=== PATIENT | male | born 1975 | race Caucasian/White ===

== ENCOUNTER 2024-02-21 00:52 | Outpatient (CLI) | payer BC | END 2024-02-21 22:59 | disposition critical access hospital (66) | LOC: EMS 00:52 | DX: R11.2 Nausea with vomiting, unspecified (principal); R42 Dizziness and giddiness; I10 Essential (primary) hypertension | CPT/HCPCS: A0425; A0429 ==

== ENCOUNTER 2024-02-21 01:35 | Emergency (ER) | payer BC ==
--- NOTE | 2024-02-21 01:50 | ED Physician Documentation ---
History of Present Illness - Stated complaint Stated Complaint: VOMITING - Chief complaint Chief Complaint: General - History obtained from History obtained from: Patient, EMS - Additonal information Additional information: 48-year-old man with history of diabetes presents to the emergency department after taking 18 units of Lantus for the first time at 11 PM tonight and then experiencing symptoms 20 minutes later including lightheadedness while on the toilet, sensation of the room spinning, vomiting and nausea. these symptoms persisted, prompting him to call ems. felt normal earlier in the day. Patient received 4mg zofran en route with improvement in nausea. Review of Systems Constitutional: denies: Fever, Chills Cardiac: denies: Chest pain / pressure Respiratory: denies: Dyspnea GI: reports: Abdominal Pain, Nausea, Vomiting. denies: Diarrhea PD PAST MEDICAL HISTORY - Past Medical History Past Medical History: Yes Endocrine/Autoimmune: Type 2 diabetes - Past Surgical History Past Surgical History: No - Present Medications Home Medications: Ambulatory Orders Medication Instructions Recorded Confirmed Ondansetron Odt [Zofran Odt] 4 mg TL Q6H PRN #10 tablet 02/21/24 Potassium Chloride [Micro-K] 10 meq PO QDAC #30 tab 02/21/24 - Allergies Allergies/Adverse Reactions: Allergies Allergy/AdvReac Type Severity Reaction Status Date / Time No Known Drug Allergies Allergy Verified 02/21/24 01:43 - Social History Does the pt smoke?: No Smoking Status: Never smoker PD ED PE NORMAL - Vitals Vital signs reviewed: Yes - General General: Alert and oriented X 3, No acute distress, Well developed/nourished - HEENT HEENT: Atraumatic, PERRL, EOMI, Moist mucous membranes, Pharynx benign - Neck Neck: Supple, no meningeal sign - Cardiac Cardiac: RRR - Respiratory Respiratory: No respiratory distress, Clear bilaterally - Abdomen Abdomen: Non tender, Non distended - Derm Derm: Normal color, Warm and dry - Neuro Neuro: Alert and oriented X 3, 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4 H VBG HCO3 23.9 VBG Total CO2 25.0 VBG O2 Saturation 94.9 H VBG Base Excess 0.2 Sodium 137 Potassium 3.0 L Chloride 103 Carbon Dioxide 26 Anion Gap 8.0 BUN 20 Creatinine 1.1 Estimated GFR (MDRD) 72 L Glucose 233 H Calcium 9.1 Total Bilirubin 0.5 AST 24 ALT 47 Alkaline Phosphatase 82 Total Protein 6.2 L Albumin 4.1 Globulin 2.1 Albumin/Globulin Ratio 2.0 Lipase 30 Urine Color Urine Clarity Urine pH Ur Specific [place] Urine Protein Urine Glucose (UA) Urine Ketones Urine Occult Blood Urine Nitrite Urine Bilirubin Urine Urobilinogen Ur Leukocyte Esterase Ur Microscopic Review Urine Culture Comments Serum Ketones NEGATIVE 02/21/24 02:11 WBC RBC Hgb Hct MCV MCH MCHC RDW Plt Count MPV Neut # (Auto) Lymph # (Auto) Garza # (Auto) Eos # (Auto) Baso # (Auto) Absolute Nucleated RBC Nucleated RBC % VBG pH VBG pCO2 VBG pO2 VBG HCO3 VBG Total CO2 VBG O2 Saturation VBG Base Excess Sodium Potassium Chloride Carbon Dioxide Anion Gap BUN Creatinine Estimated GFR (MDRD) Glucose Calcium Total Bilirubin AST ALT Alkaline Phosphatase Total Protein Albumin Globulin Albumin/Globulin Ratio Lipase Urine Color YELLOW Urine Clarity CLEAR Urine pH 6.0 Ur Specific [place] 1.025 Urine Protein NEGATIVE Urine Glucose (UA) >=1000 H Urine Ketones 15 H Urine Occult Blood NEGATIVE Urine Nitrite NEGATIVE Urine Bilirubin NEGATIVE Urine Urobilinogen 0.2 (NORMAL) Ur Leukocyte Esterase NEGATIVE Ur Microscopic Review NOT INDICATED Urine Culture Comments NOT INDICATED Serum Ketones PD Medical Decision Making - ED course ED course: 48yM With history of diabetes presents with multiple medical symptoms after first-time use of Lantus this evening. Nausea and vomiting seems to have resolved after Zofran given by EMS and his lightness has has improved as well. Plan to obtain screening lab work and keep him on the case monitor. Doubt ACS given no chest pain, shortness of breath and resolution of symptoms. Workup was unremarkable aside from hypokalemia and high blood sugar. ordered potassium repletion and spoke to patient about need to f/u with pcp. return precautions given. Departure - Departure Disposition: Home, Self Care Clinical Impression: Hyperglycemia Condition: Stable Instructions: ED Nausea Vomiting Prescriptions: Potassium Chloride [Micro-K] 10 meq PO QDAC #30 tab Ondansetron Odt [Zofran Odt] 4 mg TL Q6H PRN #10 tablet PRN Reason: Nausea / Vomiting Comments: You were seen in the emergency department for medical evaluation. Prescriptions sent to [facility]. Please follow-up with your primary care provider and return to the emergency department if you have any new or worsening symptoms or other concerns. Forms: PCP List
[2024-02-21] MEDS: SODIUM CHLORIDE 0.9% 1,000 ML IV STA ×2 (02:00→03:40)
[2024-02-21 02:01] LABS: VBG PH 7.44 (7.31-7.41)
[2024-02-21 02:02] LABS: VBG BASE EXCESS 0.2 mmol/L (-2 - +2); VBG HCO3 23.9 mmol/L (23-28); VBG OXYGEN SATURATION 94.9 % (60-80); VBG PO2 73.4 mmHg (25-47)
[2024-02-21 02:04] LABS: BASOPHILS % (AUTO) 0.2 %; EOSINOPHILS % (AUTO) 0.4 %; HGB - HEMOGLOBIN 14.2 g/dL (14.0-18.0); LYMPHOCYTES # (AUTO) 1.4 10^3/uL (1.5-3.5); LYMPHOCYTES % (AUTO) 13.3 %; MEAN CORPUSCULAR HGB CONC 35.5 g/dL (32.0-36.0); MEAN CORPUSCULAR VOLUME 87.3 fL (80.0-94.0); MEAN PLATELET VOLUME 10.9 fL (7.4-11.4); MONOCYTES # (AUTO) 0.7 10^3/uL (0.0-1.0); MONOCYTES % (AUTO) 7.2 %; NEUTROPHILS % (AUTO) 78.6 %; PLT - PLATELET COUNT 148 10^3/uL (130-450); RED BLOOD COUNT 4.58 10^6/uL (4.70-6.10); WHITE BLOOD COUNT 10.1 x10^3/uL (4.8-10.8)
[2024-02-21 02:09] LABS: KETONES, SERUM (ACETEST) NEGATIVE (NEGATIVE)
[2024-02-21 02:19] LABS: BILIRUBIN,URINE NEGATIVE (NEGATIVE); CLARITY,URINE CLEAR (CLEAR); GLUCOSE, URINE (UA) >=1000 mg/dL (NEGATIVE); KETONES,URINE (UA) 15 mg/dL (NEGATIVE); LEUKOCYTE ESTERASE, URINE NEGATIVE (NEGATIVE); NITRITE,URINE NEGATIVE (NEGATIVE); OCCULT BLOOD,URINE NEGATIVE (NEGATIVE); PROTEIN,URINE NEGATIVE (NEGATIVE); UROBILINOGEN,URINE 0.2 (NORMAL) E.U./dL (NORMAL)
[2024-02-21 02:19] LABS: ALBUMIN 4.1 g/dL (3.2-5.5); ALKALINE PHOSPHATASE 82 IU/L (42-121); ALT ALANINE AMINOTRANSFERASE 47 IU/L (10-60); AST ASPARTATE AMINOTRANSFERASE 24 IU/L (10-42); BILIRUBIN,TOTAL 0.5 mg/dL (0.2-1.0); BUN - BLOOD UREA NITROGEN 20 mg/dL (6-20); CALCIUM 9.1 mg/dL (8.5-10.3); CARBON DIOXIDE - CO2 26 mmol/L (21-32); CHLORIDE 103 mmol/L (101-111); CREATININE 1.1 mg/dL (0.6-1.3); GFR - MDRD 72 (>89); GLUCOSE 233 mg/dL (74-104); LIPASE 30 U/L (11-82); SODIUM 137 mmol/L (135-145); TOTAL PROTEIN 6.2 g/dL (6.4-8.9)
[2024-02-21] MEDS: POTASSIUM CHLORIDE 20 MEQ/15 ML UDC PO STA (03:40)
[2024-02-21] MEDS: POTASSIUM CHLOR 10 MEQ/100 ML 10 MEQ/100 ML BAG IV STA (03:41)
[2024-02-21 04:19] VITALS: O2SAT 96
[2024-02-21 04:57] VITALS: BP 119/88
== END 2024-02-21 04:52 | disposition home or self-care (01) ==
LOC: ED 01:35
DX: E11.65 Type 2 diabetes mellitus with hyperglycemia (principal); R42 Dizziness and giddiness; R11.2 Nausea with vomiting, unspecified
CPT/HCPCS: 36415; 80053; 81003; 82009; 82803; 83690; 85025; 96361; 96365; 99283; A9270; 81001; 87086